=== PATIENT | male | born 1990 | race Caucasian/White ===

== ENCOUNTER 2016-11-06 13:00 | Emergency (ER) | payer BC ==
[2016-11-06] MEDS ORDERED: Ketorolac 60 MG/2 ML SDV IM ONE (13:13)
--- NOTE | 2016-11-06 13:16 | EDM.PDOC ---
ED HPI GENERAL MEDICAL PROBLEM - General Chief Complaint: Lower Extremity Injury/Pain Stated Complaint: POSSIBLE BROKEN RIGHT FOOT Time Seen by Provider: 11/06/16 13:14 Source of Information: Reports: Patient History Limitations: Reports: No Limitations - History of Present Illness INITIAL COMMENTS - FREE TEXT/NARRATIVE: HISTORY AND PHYSICAL: History of present illness: Patient is a 26-year-old male presents to the emergency room today with complaints of right foot pain. States he was working out and kicking a punching bag when he felt pain on the rear aspect of his right foot. Reports the pain is a 1/10 while sitting but pain increases when ambulating and bearing weight. Denies any previous injury to the affected extremity Review of systems: As per history of present illness and below otherwise all systems reviewed and negative. Past medical history: As per history of present illness and as reviewed below otherwise noncontributory. Surgical history: As per history of present illness and as reviewed below otherwise noncontributory. Social history: No reported history of drug or alcohol abuse. Family history: As per history of present illness and as reviewed below otherwise noncontributory. Physical exam: Gen.: Nontoxic-appearing 26-year-old male. Able to speak in full sentences without shortness of breath. Answers questions appropriately. Alert and oriented. HEENT: Atraumatic, normocephalic, pupils reactive, negative for conjunctival pallor or scleral icterus, mucous membranes moist, throat clear, neck supple, nontender, trachea midline. Lungs: Clear to auscultation, breath sounds equal bilaterally, chest nontender. Heart: S1S2, regular, negative for clicks, rubs, or JVD. Abdomen: Soft, nondistended, nontender. Negative for masses or hepatosplenomegaly. Negative for costovertebral tenderness. Pelvis: Stable nontender. Genitourinary: Deferred. Rectal: Deferred. Extremities: Pain with palpation to the anterior aspect of the right foot. Strong pedal pulses bilaterally. No erythema or swelling noted to area of injury. Neurovascular unremarkable. Neuro: Awake, alert, oriented. Cranial nerves II through XII unremarkable. Cerebellum unremarkable. Motor and sensory unremarkable throughout. Exam nonfocal. Reviewed x-ray results with patient. Will provide patient with an David wrap, patient declined crutches at this time stating he has some at home. Discussed with patient to follow-up with orthopedics in the next couple days, patient verbalizes understanding. Diagnostics: X-ray right foot Therapeutics: Toradol IM- declined Impression: Foot pain Plan: 1. Take Ultram for nighttime use only. May use Tylenol and/or ibuprofen during the day. Rest, ice, elevate the affected extremity. Her David wrap for compression and comfort. Use the crutches you have at home for the next 1-2 days. 2. Follow-up with orthopedics next week. Return to the ED as needed as discussed. Definitive disposition and diagnosis as appropriate pending reevaluation and review of above. Onset: Today Right Feet Pain Score (Numeric/FACES): 1 - Related Data Allergies Allergy/AdvReac Type Severity Reaction Status Date / Time No Known Allergies Allergy Verified 11/06/16 13:15 Home Meds: Home Meds . [No Known Home Meds] 09/04/14 [History] Past Medical History - Past Health History Medical/Surgical History: Denies Medical/Surgical History Cardiovascular History: Reports: Other (See Below) Other Cardiovascular History: coronary artery spasms Musculoskeletal History: Reports: Back Pain, Chronic - Past Surgical History Musculoskeletal Surgical History: Reports: Other (See Below) Social & Family History - Tobacco Use Smoking Status *Q: Current Every Day Smoker Years of Tobacco use: 6 Packs/Tins Daily: 0.3 - Alcohol Use Days Per Week of Alcohol Use: 2 Number of Drinks Per Day: 18 Total Drinks Per Week: 36 - Recreational Drug Use Recreational Drug Use: Yes Drug Use in Last 12 Months: Yes Recreational Drug Type: Reports: Marijuana/Hashish Recreational Drug Use Frequency: Weekly Review of Systems - Review of Systems Review Of Systems: ROS reveals no pertinent complaints other than HPI. ED EXAM, GENERAL - Physical Exam Exam: See Below (See dictation) Course - Vital Signs Last Recorded V/S: Last Vital Signs Temp 36.4 C 11/06/16 13:14 Pulse 72 11/06/16 13:14 Resp 16 11/06/16 13:14 BP 133/83 11/06/16 13:14 Pulse Ox 97 11/06/16 13:14 - Orders/Labs/Meds Orders: Active Orders 24 hr Category Date Time Status Foot 2V Rt [CR] Stat Exams 11/06/16 13:13 Taken Meds: Medications Discontinued Medications Generic Name Dose Route Start Last Admin Trade Name Freq PRN Reason Stop Dose Admin Ketorolac Tromethamine 60 mg 11/06/16 13:13 Toradol IM 11/06/16 13:14 ONETIME ONE Departure - Departure Time of Disposition: 14:13 Disposition: Home, Self-Care 01 Condition: Good Clinical Impression: Foot pain, right - Discharge Information Referrals: PCP,None [Primary Care Provider] - Forms: ED Department Discharge Additional Instructions: The following information is given to patients seen in the emergency department who are being discharged to home. This information is to outline your options for follow-up care. We provide all patients seen in our emergency department with a follow-up referral. The need for follow-up, as well as the timing and circumstances, are variable depending upon the specifics of your emergency department visit. If you don't have a primary care physician on staff, we will provide you with a referral. We always advise you to contact your personal physician following an emergency department visit to inform them of the circumstance of the visit and for follow-up with them and/or the need for any referrals to a consulting specialist. The emergency department will also refer you to a specialist when appropriate. This referral assures that you have the opportunity for follow-up care with a specialist. All of these measure are taken in an effort to provide you with optimal care, which includes your follow-up. Under all circumstances we always encourage you to contact your private physician who remains a resource for coordinating your care. When calling for follow-up care, please make the office aware that this follow-up is from your recent emergency room visit. If for any reason you are refused follow-up, please contact the [facility] emergency department at and asked to speak to the emergency department charge nurse. [facility] Professional Building [address] [place] [address], [address] [place] [address] 1. Take Ultram for nighttime use only. May use Tylenol and/or ibuprofen during the day. Rest, ice, elevate the affected extremity. Use David wrap for compression and comfort. Use the crutches you have at home for the next 1-2 days. 2. Follow-up with orthopedics next week. Return to the ED as needed as discussed. - My Orders Last 24 Hours: My Active Orders 11/06/16 13:13 Foot 2V Rt [CR] Stat - Assessment/Plan Last 24 Hours: My Active Orders 11/06/16 13:13 Foot 2V Rt [CR] Stat
[2016-11-06 14:28] VITALS: BP 124/80
--- NOTE | 2016-11-09 13:59 | CR ---
EXAM DATE: 11/06/16 PATIENT'S AGE: 26 Patient: PAULA ALTAMIRANO Facility: [place], [place] Site . Site : 1990 Study: XRay Extremity Right foot [id number] 1:39:42 PM Ordering Physician: Doctor Lafleur Final Report: INDICATION: Right foot pain. Comparison: None. Technique: Portable radiographic examination of the right foot two-view study. Findings: No evidence of fracture or dislocation. No bony or soft tissue abnormalities. Impression: Negative radiographic examination of the right foot. Dictated by Margo Morse MD @ Nov 06 2016 1:54PM (Electronic Signature) Report Signed by Proxy. LUISITO
== END 2016-11-06 14:21 | disposition home or self-care (01) ==
LOC: MW.ED 13:00
DX: M79.671 Pain in right foot (principal); F17.210 Nicotine dependence, cigarettes, uncomplicated
CPT/HCPCS: 73620-26-RT; 73620-RT; 99282; 99283

== ENCOUNTER 2018-03-27 14:55 | Emergency (ER) | payer BC ==
[2018-03-27] MEDS ORDERED: Sodium Chloride 0.9% 1,000 ML IV ONE (15:57)
[2018-03-27] MEDS ORDERED: Ondansetron 4 MG/2 ML SDV IVPUSH ONE (15:57)
[2018-03-27] MEDS ORDERED: Ketorolac 30 MG/ML SDV IVPUSH ONE (15:57)
--- NOTE | 2018-03-27 15:57 | EDM.PDOC ---
ED HPI GENERAL MEDICAL PROBLEM - General Chief Complaint: General Stated Complaint: FLU Time Seen by Provider: 03/27/18 15:53 Source of Information: Reports: Patient History Limitations: Reports: No Limitations - History of Present Illness INITIAL COMMENTS - FREE TEXT/NARRATIVE: HISTORY AND PHYSICAL: History of present illness: Patient is a 27-year-old male who presents to the emergency room with complaints of sinus pressure, nasal congestion, bilateral eye drainage and irritation. He has also had nausea, vomiting, diarrhea over the past 2 days. He states he just feels run down. He denies any fever, chills, chest pain, shortness of breath. He has been eating and drinking appropriately. He states that his roommates have also been sick during this time. No recent travel or antibiotic use. Review of systems: As per history of present illness and below otherwise all systems reviewed and negative. Past medical history: As per history of present illness and as reviewed below otherwise noncontributory. Surgical history: As per history of present illness and as reviewed below otherwise noncontributory. Social history: See social history for further information Family history: As per history of present illness and as reviewed below otherwise noncontributory. Physical exam: General: Well-developed and well nourished 27-year-old male. Alert and oriented. Nontoxic appearing and in no acute distress. HEENT: Atraumatic, normocephalic, pupils equal and reactive bilaterally, mild scleral injection bilaterally, negative for conjunctival pallor or scleral icterus, mucous membranes moist, bilateral maxillary sinus tenderness with palpation, nares patent, TMs normal bilaterally, throat clear, neck supple, nontender, trachea midline. No drooling or trismus noted. No meningeal signs. No hot potato voice noted. No nuchal rigidity. Lungs: Clear to auscultation, breath sounds equal bilaterally, chest nontender. Heart: S1S2, regular rate and rhythm without overt murmur Abdomen: Soft, nondistended, nontender. No rebound tenderness. Negative for masses or hepatosplenomegaly. Negative for costovertebral tenderness. Pelvis: Stable nontender. Genitourinary: Deferred. Rectal: Deferred. Skin: Intact, warm, dry. No lesions or rashes noted. Extremities: Atraumatic, negative for cords or calf pain. Neurovascular unremarkable. Neuro: Awake, alert, oriented. Cranial nerves II through XII unremarkable. Cerebellum unremarkable. Motor and sensory unremarkable throughout. Exam nonfocal. Notes: Lab work is unremarkable. States there is improvement after IV fluids and medications. Will treat the sinus infection with Augmentin. Zofran for comfort purposes. We discussed supportive care measures at home and the need for appropriate follow-up. He voices understanding and is agreeable to plan of care. Denies any further questions or concerns at this time. Diagnostics: CBC, CMP, influenza Therapeutics: IV fluid, Toradol, Zofran Prescription: Augmentin Zofran Impression: Sinusitis Viral gastroenteritis Plan: 1. Small frequent sips of fluids to prevent dehydration. Small frequent meals, bland diet until you're GI symptoms have resolved. 2. Please use Tylenol and ibuprofen for pain and fever management. 3. Follow-up with your primary caregiver in the next 1-2 days. Return to the ED as needed and as discussed. Definitive disposition and diagnosis as appropriate pending reevaluation and review of above. lungs/chest/esophagus Pain Score (Numeric/FACES): 2 - Related Data Allergies Allergy/AdvReac Type Severity Reaction Status Date / Time adhesive Allergy Rash Verified 03/27/18 15:15 Home Meds: Home Meds . [No Known Home Meds] 09/04/14 [History] Past Medical History - Past Health History Medical/Surgical History: Denies Medical/Surgical History Cardiovascular History: Reports: Other (See Below) Other Cardiovascular History: coronary artery spasms Musculoskeletal History: Reports: Back Pain, Chronic - Infectious Disease History Infectious Disease History: Reports: Chicken Pox - Past Surgical History Musculoskeletal Surgical History: Reports: Other (See Below) Other Musculoskeletal Surgeries/Procedures:: Meniscus removed from both knees Social & Family History - Family History Family Medical History: Noncontributory - Tobacco Use Smoking Status *Q: Current Every Day Smoker Years of Tobacco use: 10 Packs/Tins Daily: 0.3 - Caffeine Use Caffeine Use: Reports: Coffee, Energy Drinks - Alcohol Use Days Per Week of Alcohol Use: 3 Number of Drinks Per Day: 4 Total Drinks Per Week: 12 - Recreational Drug Use Recreational Drug Use: Yes Drug Use in Last 12 Months: Yes Recreational Drug Type: Reports: Marijuana/Hashish Recreational Drug Use Frequency: Socially ED ROS GENERAL - Review of Systems Review Of Systems: ROS reveals no pertinent complaints other than HPI. ED EXAM, GENERAL - Physical Exam Exam: See Below (See dictation) Course - Vital Signs Last Recorded V/S: Last Vital Signs Temp 99.6 F 03/27/18 15:11 Pulse 101 H 03/27/18 15:11 Resp 18 03/27/18 15:11 BP 131/82 03/27/18 15:11 Pulse Ox 96 03/27/18 15:11 - Orders/Labs/Meds Labs: Laboratory Tests 03/27/18 03/27/18 Range/Units 16:04 16:04 WBC 7.14 (4.0-11.0) K/uL RBC 4.84 (4.50-5.90) M/uL Hgb 14.7 (13.0-17.0) g/dL Hct 43.0 (38.0-50.0) % MCV 88.8 (80.0-98.0) fL MCH 30.4 (27.0-32.0) pg MCHC 34.2 (31.0-37.0) g/dL RDW Std Deviation 42.5 (28.0-62.0) fl RDW Coeff of Darya 13 (11.0-15.0) % Plt Count 238 (150-400) K/uL MPV 10.00 (7.40-12.00) fL Neut % (Auto) 69.2 (48.0-80.0) % Lymph % (Auto) 20.6 (16.0-40.0) % [place] % (Auto) 8.5 (0.0-15.0) % Eos % (Auto) 1.3 (0.0-7.0) % Baso % (Auto) 0.4 (0.0-1.5) % Neut # (Auto) 4.9 (1.4-5.7) K/uL Lymph # (Auto) 1.5 (0.6-2.4) K/uL [place] # (Auto) 0.6 (0.0-0.8) K/uL Eos # (Auto) 0.1 (0.0-0.7) K/uL Baso # (Auto) 0.0 (0.0-0.1) K/uL Nucleated RBC % 0.0 /100WBC Nucleated RBCs # 0 K/uL Sodium 142 (136-148) mmol/L Potassium 4.0 (3.5-5.1) mmol/L Chloride 110 H (98-107) mmol/L Carbon Dioxide 22.4 (21.0-32.0) mmol/L BUN 6 L (7.0-18.0) mg/dL Creatinine 0.9 (0.8-1.3) mg/dL Est Cr Clr Drug Dosing 142.07 mL/min Estimated GFR (MDRD) > 60.0 ml/min Glucose 90 (74-106) mg/dL Calcium 9.3 (8.5-10.1) mg/dL Total Bilirubin 0.4 (0.2-1.0) mg/dL AST 27 (15-37) IU/L ALT 42 (14-63) IU/L Alkaline Phosphatase 70 (46-116) U/L Total Protein 7.2 (6.4-8.2) g/dL Albumin 3.7 (3.4-5.0) g/dL Globulin 3.5 (2.6-4.0) g/dL Albumin/Globulin Ratio 1.1 (0.9-1.6) Meds: Medications Discontinued Medications Generic Name Dose Route Start Last Admin Trade Name Freq PRN Reason Stop Dose Admin Sodium Chloride 1,000 mls @ 999 mls/hr 03/27/18 15:57 03/27/18 16:30 Normal Saline IV 03/27/18 16:57 999 mls/hr STAT ONE Administration Ketorolac Tromethamine 30 mg 03/27/18 15:57 03/27/18 16:31 Toradol IVPUSH 03/27/18 15:58 30 mg ONETIME ONE Administration Ondansetron HCl 8 mg 03/27/18 15:57 03/27/18 16:31 Zofran IVPUSH 03/27/18 15:58 8 mg ONETIME ONE Administration Departure - Departure Time of Disposition: 17:05 Disposition: Home, Self-Care 01 Clinical Impression: Viral gastroenteritis Sinusitis Qualifiers: Sinusitis location: maxillary Chronicity: acute Recurrence: non-recurrent Qualified Code(s): J01.00 - Acute maxillary sinusitis, unspecified - Discharge Information Instructions: Viral Gastroenteritis, Adult, [id number], Sinusitis, Adult, [id number] Referrals: PCP,Unknown [Primary Care Provider] - Forms: ED Department Discharge Additional Instructions: The following information is given to patients seen in the emergency department who are being discharged to home. This information is to outline your options for follow-up care. We provide all patients seen in our emergency department with a follow-up referral. The need for follow-up, as well as the timing and circumstances, are variable depending upon the specifics of your emergency department visit. If you don't have a primary care physician on staff, we will provide you with a referral. We always advise you to contact your personal physician following an emergency department visit to inform them of the circumstance of the visit and for follow-up with them and/or the need for any referrals to a consulting specialist. The emergency department will also refer you to a specialist when appropriate. This referral assures that you have the opportunity for follow-up care with a specialist. All of these measure are taken in an effort to provide you with optimal care, which includes your follow-up. Under all circumstances we always encourage you to contact your private physician who remains a resource for coordinating your care. When calling for follow-up care, please make the office aware that this follow-up is from your recent emergency room visit. If for any reason you are refused follow-up, please contact the [facility] Emergency Department at and asked to speak to the emergency department charge nurse. [facility] [address] [place] [id number] [place] [address] 1. Small frequent sips of fluids to prevent dehydration. Small frequent meals, bland diet until you're GI symptoms have resolved. 2. Please use Tylenol and ibuprofen for pain and fever management. 3. Follow-up with your primary caregiver in the next 1-2 days. Return to the ED as needed and as discussed.
[2018-03-27 16:41] LABS: CHLORIDE,CL 110 mmol/L (98-107); SODIUM,NA 142 mmol/L (136-148)
[2018-03-27 17:26] VITALS: BP 129/60
== END 2018-03-27 17:15 | disposition home or self-care (01) ==
LOC: MW.ED 14:55
DX: A08.4 Viral intestinal infection, unspecified (principal); J01.00 Acute maxillary sinusitis, unspecified; F17.210 Nicotine dependence, cigarettes, uncomplicated
CPT/HCPCS: 36415; 80053; 85025; 87804; 96361; 96374; 96375; 99283; J1885; J2405; J7040

== ENCOUNTER 2018-03-28 08:05 | Emergency (ER) | payer BC ==
--- NOTE | 2018-03-28 08:37 | EDM.PDOC ---
ED HPI GENERAL MEDICAL PROBLEM - General Chief Complaint: General Stated Complaint: FLU Time Seen by Provider: 03/28/18 08:37 Source of Information: Reports: Patient - History of Present Illness INITIAL COMMENTS - FREE TEXT/NARRATIVE: HISTORY AND PHYSICAL: History of present illness: [] Review of systems: As per history of present illness and below otherwise all systems reviewed and negative. Past medical history: As per history of present illness and as reviewed below otherwise noncontributory. Surgical history: As per history of present illness and as reviewed below otherwise noncontributory. Social history: No reported history of drug or alcohol abuse. Family history: As per history of present illness and as reviewed below otherwise noncontributory. Physical exam: HEENT: Atraumatic, normocephalic, pupils reactive, negative for conjunctival pallor or scleral icterus, mucous membranes moist, throat clear, neck supple, nontender, trachea midline. Lungs: Clear to auscultation, breath sounds equal bilaterally, chest nontender. Heart: S1S2, regular, negative for clicks, rubs, or JVD. Abdomen: Soft, nondistended, nontender. Negative for masses or hepatosplenomegaly. Negative for costovertebral tenderness. Pelvis: Stable nontender. Genitourinary: Deferred. Rectal: Deferred. Extremities: Atraumatic, negative for cords or calf pain. Neurovascular unremarkable. Neuro: Awake, alert, oriented. Cranial nerves II through XII unremarkable. Cerebellum unremarkable. Motor and sensory unremarkable throughout. Exam nonfocal. Diagnostics: [Influenza strep chest 1 view ] Therapeutics: [] Impression: [] Definitive disposition and diagnosis as appropriate pending reevaluation and review of above. - Related Data Allergies Allergy/AdvReac Type Severity Reaction Status Date / Time adhesive Allergy Rash Verified 03/27/18 15:15 Home Meds: Home Meds . [No Known Home Meds] 09/04/14 [History] Past Medical History - Past Health History Medical/Surgical History: Denies Medical/Surgical History Cardiovascular History: Reports: Other (See Below) Other Cardiovascular History: coronary artery spasms Musculoskeletal History: Reports: Back Pain, Chronic - Infectious Disease History Infectious Disease History: Reports: Chicken Pox - Past Surgical History Musculoskeletal Surgical History: Reports: Other (See Below) Other Musculoskeletal Surgeries/Procedures:: Meniscus removed from both knees Social & Family History - Family History Family Medical History: Noncontributory - Caffeine Use Caffeine Use: Reports: Coffee, Energy Drinks Course - Orders/Labs/Meds Orders: Active Orders 24 hr Category Date Time Status Chest 1V Frontal [CR] Stat Exams 03/28/18 08:24 Ordered INFLUENZA A+B AG SCREEN [RM] Stat Lab 03/28/18 08:24 Ordered STREP SCRN A RAPID W CULT CONF [RM] Stat Lab 03/28/18 08:24 Ordered Departure - Discharge Information Referrals: PCP,Unknown [Primary Care Provider] - - My Orders Last 24 Hours: My Active Orders 03/28/18 08:24 Chest 1V Frontal [CR] Stat INFLUENZA A+B AG SCREEN [RM] Stat STREP SCRN A RAPID W CULT CONF [RM] Stat - Assessment/Plan Last 24 Hours: My Active Orders 03/28/18 08:24 Chest 1V Frontal [CR] Stat INFLUENZA A+B AG SCREEN [RM] Stat STREP SCRN A RAPID W CULT CONF [RM] Stat
== END 2018-03-28 09:01 | disposition left against medical advice (07) ==
LOC: MW.ED 08:05
DX: Z53.21 Procedure and treatment not carried out due to patient leaving prior to being seen by health care provider (principal)

== ENCOUNTER 2020-03-28 10:53 | Day surgery (SDC) | payer SELFPAY ==
[~2020-03-28 10:53] MED LIST: Lactated Ringers 1,000 ML IV SCH; ceFAZolin 2 GM in Premix Bag 1 BAG IV SCH; fentaNYL 100 MCG/2 ML SDV ONE
--- NOTE | 2020-03-28 12:30 | PCM.PREANE ---
Preanesthetic Assessment - Anesthesia/Transfusion/Family Hx Anesthesia History: Prior Anesthesia Without Reaction Family History of Anesthesia Reaction: No Transfusion History: No Prior Transfusion(s) Intubation History: Unknown - Review of Systems General: No Symptoms Pulmonary: No Symptoms Cardiovascular: No Symptoms Gastrointestinal: No Symptoms Neurological: No Symptoms Other: Reports: None - Physical Assessment Vital Signs: Last Vital Signs Temp 35.8 C L 03/28/20 11:40 Pulse 58 L 03/28/20 11:40 Resp 15 03/28/20 11:40 BP 111/69 03/28/20 11:40 Pulse Ox 99 03/28/20 11:40 Height: 6 ft 2 in Weight: 104.326 kg ASA Class: 5E Emergency Airway Class: Mallampati = 1 Dentition: Reports: Normal Dentition Thyro-Mental Finger Breadths: 3 Mouth Opening Finger Breadths: 3 ROM/Head Extension: Full Lungs: Clear to Auscultation, Normal Respiratory Effort Cardiovascular: Regular Rate, Regular Rhythm - Lab Values: Laboratory Last Values SARS-CoV-2 RNA (IVET) NEGATIVE (NEGATIVE) 03/28/20 10:45 - Allergies Allergies/Adverse Reactions: Allergies Allergy/AdvReac Type Severity Reaction Status Date / Time adhesive Allergy Rash Verified 03/27/20 12:24 - Blood Blood Available: No - Anesthesia Plan Pre-Op Medication Ordered: None - Acknowledgements Anesthesia Type Planned: General Anesthesia Pt an Appropriate Candidate for the Planned Anesthesia: Yes Alternatives and Risks of Anesthesia Discussed w Pt/Guardian: Yes Pt/Guardian Understands and Agrees with Anesthesia Plan: Yes PreAnesthesia Questionnaire - Past Health History Medical/Surgical History: Denies Medical/Surgical History Cardiovascular History: Reports: Arrhythmia, Other (See Below) Other Cardiovascular History: hx of "coronary artery spasms" about 8 years ago on 4 occasions due to stress, occasional arrythmia Respiratory History: Reports: Asthma Other Respiratory History: hx of "sports induced asthma" at 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 clavicle fx, states h/o multiple fx including left hand (x11), left patella, chipped bone in neck,right fibula, right foot and right wrist- no surgery and no hardware Neurological History: Reports: Concussion - Infectious Disease History Infectious Disease History: Reports: Chicken Pox - Past Surgical History Head Surgeries/Procedures: Reports: None HEENT Surgical History: Reports: Oral Surgery Other HEENT Surgeries/Procedures: removal of wisdom teeth Musculoskeletal Surgical History: Reports: Arthroscopic Knee Other Musculoskeletal Surgeries/Procedures:: bilateral knee arthroscopies - SUBSTANCE USE Tobacco Use Status *Q: Current Every Day Tobacco User (to 4-5 cig. per day from 2ppd) Tobacco Use Within Last Twelve Months: Cigarettes Recreational Drug Use History: Yes Recreational Drug Type: Reports: Marijuana/Hashish Recreational Drug Last Use: 03/25/20 - HOME MEDS Home Medications: Home Meds . [No Known Home Meds] 09/04/14 [History] - CURRENT (IN HOUSE) MEDS Current Meds: Current Medications Lactated Ringer's (Ringers, Lactated) 1,000 mls @ 100 mls/hr IV ASDIRECTED [facility] Cefazolin Sodium/Dextrose 2 gm (/ Premix) 50 mls @ 100 mls/hr IV ONCALL [place]ENO Discontinued Medications Fentanyl (Sublimaze) Confirm Administered Dose 100 mcg .ROUTE .STK-MED ONE Stop: 03/28/20 10:46
[2020-03-28] MEDS ORDERED: Bupivacaine 0.25% 10 ML SDV ONE ×2 (13:00→13:56)
[2020-03-28] MEDS ORDERED: fentaNYL 250 MCG/5 ML SDV ONE (13:27)
[2020-03-28] MEDS ORDERED: Midazolam 1 MG/ML 2 ML SDV ONE (13:27)
[2020-03-28] MEDS ORDERED: Propofol 200 MG/20 ML SDV ONE (13:27)
[2020-03-28] MEDS ORDERED: Ondansetron 4 MG/2 ML SDV ONE (13:28)
[2020-03-28] MEDS ORDERED: Lidocaine 2% 5 ML SDV ONE (13:28)
[2020-03-28] MEDS ORDERED: Ketorolac 30 MG/ML SDV ONE (13:28)
[2020-03-28] MEDS ORDERED: Glycopyrrolate 0.2 MG/ML SDV ONE (13:28)
[2020-03-28] MEDS ORDERED: Rocuronium Bromide 50 MG/5 ML Syringe ONE (13:28)
[2020-03-28] MEDS ORDERED: Sodium Chloride 0.9% 20 ML ONE (13:50)
[2020-03-28] MEDS ORDERED: ceFAZolin 1 GM Vial ONE (13:50)
--- NOTE | 2020-03-28 15:03 | PCM.OPNOTE ---
- General Post-Op/Procedure Note Date of Surgery/Procedure: 03/28/20 Operative Procedure(s): orif left distal clavicle fracture Pre Op Diagnosis: left distal clavicle fracture, closed Post-Op Diagnosis: Same Anesthesia Technique: General ET Tube Primary Surgeon: Bear Hallman Strip Stamp Straightener: Mary Alas EBL in mLs: 75 Complications: None Condition: Good
[2020-03-28] MEDS ORDERED: Acetaminophen 1,000 MG in Premix Bag 1 BAG IV ONE (15:26)
[2020-03-28] MEDS ORDERED: HYDROmorphone 2 MG/ML Syringe ONE (15:38)
[2020-03-28] MEDS: HYDROmorphone 2 MG/ML Syringe IVPUSH ONE ×2 (15:40→15:45)
[2020-03-28] MEDS ORDERED: Acetaminophen/oxyCODONE 325-5 MG Tab PO ONE (17:04)
[2020-03-28 18:08] VITALS: BP 122/71; PULSE 54
--- NOTE | 2020-03-28 19:07 | OR ---
SURGEON: Bear Hallman DATE OF PROCEDURE: 03/28/2020 PREOPERATIVE DIAGNOSIS: Left distal clavicle fracture, closed. POSTOPERATIVE DIAGNOSIS: Left distal clavicle fracture, closed. PROCEDURE: Open reduction and internal fixation, left distal clavicle fracture. PRIMARY SURGEON: Bear Hallman DO BRANCH OPERATIONS SPECIALIST: BAY Sheets ROLE OF BRANCH OPERATIONS SPECIALIST: Nurse practitioner, BAY Sheets, played an essential role in assisting in this case, helping to position the patient, retract structures as needed, as well as suturing and cutting sutures as indicated. Her presence improved patient's safety and decreased operative time. ANESTHESIA: General endotracheal intubation. FLUID: Lactated Ringer's solution. ESTIMATED BLOOD LOSS: 25 mL. COMPLICATIONS: None. SPECIMEN: None. DISCHARGE DISPOSITION: Stable to PACU. HISTORY AND INDICATIONS FOR THE PROCEDURE: The patient was seen preoperatively by myself in the clinic. He had a snowboarding injury, going approximately 65 to 75 miles an hour. He has had multiple fractures in the past. Preoperative imaging confirmed the above- mentioned diagnosis. Risks and goals of the procedure were explained to the patient. Informed consent was obtained. DETAILS OF PROCEDURE: The patient was seen preoperatively by myself and the Anesthesia staff in the preoperative holding area where the operative site was marked. He was brought to the operative suite by Anesthesia staff where general anesthesia was administered. He was in a beach chair position. All extremities were found to be well padded. The neck was slightly flexed. The left upper extremity was then prepped and draped in a sterile manner. Time-out was called identifying the correct patient, the correct procedure, the correct site, and that antibiotics were given within appropriate period of time. The distal clavicle, acromioclavicular joint, and acromion were marked out. An incision was made over approximately 12 cm from the distal clavicle extending to the acromioclavicular joint. Bleeding was controlled with Bovie electrocautery. I used Metzenbaums to come down on the bone and then peeled the deep fascia over the clavicle away with Bovie electrocautery and a tsai elevator. The distal fragment was comminuted. There was an anterior piece which could not be reattached. I reduced this with lobster claw, that was very difficult, so I decided I would place the plate and then get preliminary fixation. I placed two screws through the proximal portion of the plate and then reduced it and then placed two guidewires with stops through the screw holes to hold it in position. I then drilled two locking screws distally. I then removed my K-wires and then drilled the remainder of the locking screws. I then took preliminary fluoroscopy images with sterilely draped fluoroscopy unit. This appeared to be in good position out to length. I then drilled the rest of my screws and placed them. We then took final films. I then copiously irrigated with Betadine infused irrigation and closed the deep fascia with #1 Vicryl in a running watertight manner followed by subcutaneous #1 suture followed by skin anastacia. The subcutaneous portion of the anastacia was done by my assist and then she placed Betadine infused Adaptic, 4 x 4's, and Medipore tape over the incision. The patient was then allowed to awake from general anesthesia and taken to the PACU in stable condition. [id number] / MODL /[id number]
--- NOTE | 2020-03-28 20:14 | PCM.POSTAN ---
POST ANESTHESIA ASSESSMENT - MENTAL STATUS Mental Status: Alert, Oriented - VITAL SIGNS Vital Signs: Last Vital Signs Temp 36.4 C 03/28/20 16:07 Pulse 54 L 03/28/20 17:37 Resp 15 03/28/20 17:37 BP 122/71 03/28/20 17:37 Pulse Ox 98 03/28/20 17:37 - RESPIRATORY Respiratory Status: Respiratory Rate WNL, Airway Patent, O2 Saturation Stable - CARDIOVASCULAR CV Status: Pulse Rate WNL, Blood Pressure Stable - GASTROINTESTINAL GI Status: No Symptoms - PAIN Pain Score: 6 - POST OP HYDRATION Hydration Status: Adequate & Stable - OBSERVATIONS Free Text/Narrative:: No apparent anesthesia complications or concerns noted.
--- NOTE | 2020-03-28 20:16 | PCM48HPAN ---
Post Anesthesia Note - EVALUATION WITHIN 48HRS OF ANESTHETIC Vital Signs in Normal Range: Yes Patient Participated in Evaluation: Yes Respiratory Function Stable: Yes Airway Patent: Yes Cardiovascular Function Stable: Yes Hydration Status Stable: Yes Pain Control Satisfactory: Yes Nausea and Vomiting Control Satisfactory: Yes Mental Status Recovered: Yes Vital Signs: Last Vital Signs Temp 36.4 C 03/28/20 16:07 Pulse 54 L 03/28/20 17:37 Resp 15 03/28/20 17:37 BP 122/71 03/28/20 17:37 Pulse Ox 98 03/28/20 17:37 - COMMENTS/OBSERVATIONS Free Text/Narrative:: No anesthesia concerns.
--- NOTE | 2020-03-31 11:55 | CR ---
INDICATION: Fracture. TECHNIQUE: Intraoperative C-arm fluoroscopy. IMPRESSION: Intraoperative C-arm fluoroscopy was provided. Fluoroscopy greater than 1 hour. Two images were captured. Dictated by Ryan Gray MD @ Mar 31 2020 11:50AM Signed by Dr. Ryan Gray @ Mar 31 2020 11:53AM
== END 2020-03-28 18:05 | disposition home or self-care (01) ==
LOC: MW.SDS 10:53
PROVIDERS: ATTEND Orthopaedic Surgery
DX: S42.032A Displaced fracture of lateral end of left clavicle, initial encounter for closed fracture (principal); Z88.8 Allergy status to other drugs, medicaments and biological substances; Z91.048 Other nonmedicinal substance allergy status; Z01.812 Encounter for preprocedural laboratory examination; Z20.822 Contact with and (suspected) exposure to COVID-19
CPT/HCPCS: 23515; 87635; A9270; J0131; J0690; J1170; J1885; J2001; J2250; J2405; J2704; J3010; J3490; J7120; U0002